=== PATIENT | male | born 1975 | race Caucasian/White ===

== ENCOUNTER → 2018-03-05 | Outpatient (CLI) | payer OTHER ==
[2018-03-05 16:55] LABS: CHOLESTEROL LEVEL 168 MG/DL (<200); CHOLESTEROL RISK RATIO 4.097 (<5); GLUCOSE,RANDOM 84 MG/DL (LESS THAN 200); HDL CHOLESTEROL 41 MG/DL (>40); LDL CHOLESTEROL 105.2 MG/DL (<100); NON-HDL-C 127 MG/DL; TRIGLYCERIDES LEVEL 109 MG/DL (<150)
[2018-03-05 16:58] LABS: ESTIMATED AVERAGE GLUCOSE 111 MG/DL (60-110); HEMOGLOBIN A1c 5.5 %
== END ==
LOC: M WUC 11:10
DX: Z51.81 Encounter for therapeutic drug level monitoring (principal); Z79.899 Other long term (current) drug therapy

== ENCOUNTER → 2018-06-29 | Outpatient (CLI) | payer OTHER ==
[2018-06-29 16:50] LABS: HEMATOCRIT 43.1 % (42.0-52.0); HEMOGLOBIN 14.2 g/dl (13.5-17.5); MEAN CORPUSCULAR HEMOGLOBIN 28.5 pg (27.0-33.0); MEAN CORPUSCULAR HGB CONC 32.9 g/dl (32.0-36.5); MEAN CORPUSCULAR VOLUME 86.4 fl (80.0-96.0); PLATELET COUNT, AUTOMATED 317 10^3/uL (150-450); RED BLOOD COUNT 4.99 10^6/uL (4.30-6.10); RED CELL DISTRIBUTION WIDTH 12.4 % (11.5-14.5); WHITE BLOOD COUNT 7.3 10^3/uL (4.0-10.0)
[2018-06-29 17:06] LABS: ALBUMIN 4.1 GM/DL (3.2-5.2); ALBUMIN/GLOBULIN RATIO 1.28 (1.00-1.93); ALKALINE PHOSPHATASE 64 U/L (45-117); ALT/SGPT 62 U/L (12-78); AST/SGOT 31 U/L (7-37); BILIRUBIN,DIRECT < 0.1 MG/DL (0.0-0.2); BILIRUBIN,TOTAL 0.2 MG/DL (0.2-1.0); TOTAL PROTEIN 7.3 GM/DL (6.4-8.2)
== END ==
LOC: M WUC 10:50
DX: Z79.899 Other long term (current) drug therapy (principal)
CPT/HCPCS: 80076

== ENCOUNTER → 2018-10-03 | Outpatient (REF) | payer OTHER ==
[2018-10-03 13:02] LABS: URIC ACID 6.4 MG/DL (3.5-7.2)
== END ==
LOC: M LAB REF 12:08
DX: M10.9 Gout, unspecified (principal)
CPT/HCPCS: 84550

== ENCOUNTER → 2018-11-26 | Outpatient (CLI) | payer OTHER ==
[2018-11-26 10:13] LABS: HEMATOCRIT 41.6 % (42.0-52.0); MEAN CORPUSCULAR HEMOGLOBIN 28.7 pg (27.0-33.0); MEAN CORPUSCULAR HGB CONC 33.7 g/dl (32.0-36.5); MEAN CORPUSCULAR VOLUME 85.4 fl (80.0-96.0); PLATELET COUNT, AUTOMATED 301 10^3/uL (150-450); RED BLOOD COUNT 4.87 10^6/uL (4.30-6.10); WHITE BLOOD COUNT 8.1 10^3/uL (4.0-10.0)
[2018-11-26 10:35] LABS: BILIRUBIN,DIRECT 0.1 MG/DL (0.0-0.2); BILIRUBIN,TOTAL 0.6 MG/DL (0.2-1.0); TOTAL PROTEIN 7.7 GM/DL (6.4-8.2); VALPROIC ACID (DEPAKOTE) 27.2 UG/ML (50.0-100.0)
== END ==
LOC: M WUC 08:18
PROVIDERS: ATTEND Psychiatry & Neurology Psychiatry
DX: Z51.81 Encounter for therapeutic drug level monitoring (principal); Z79.899 Other long term (current) drug therapy

== ENCOUNTER 2019-04-07 07:25 | Day surgery (SDC) | payer OTHER ==
[~2019-04-07] VITALS: Ht 185.4 cm; Wt 106.6 kg
[~2019-04-07 07:25] MED LIST: ALLO10TA PO; CLON0.5T8 PO; DEPA1TAB3 PO; MOME50SP; MULTCAP PO; OLAN15TA PO; PROAAER10 INH; ROSU10TA5 PO
[2019-04-07] MEDS ORDERED: MIDAZOLAM INJ 2 MG/2 ML VIAL (J2250) As Ordered ONE (08:52)
[2019-04-07] MEDS ORDERED: ROCURONIUM BROMIDE 50 MG/5 ML VIAL As Ordered ONE (08:52)
[2019-04-07] MEDS ORDERED: PROPOFOL 200 MG/20 ML VIAL As Ordered ONE (08:52)
[2019-04-07] MEDS ORDERED: fentaNYL 250 MCG/5 ML INJECTION (J3010) As Ordered ONE (08:52)
[2019-04-07] MEDS ORDERED: LIDOCAINE 2% INJ 100 MG/5 ML SDV (FOR ANES.) As Ordered ONE (08:52)
[2019-04-07] MEDS ORDERED: LR 1,000 ML IV ONE (09:15)
[2019-04-07] MEDS ORDERED: LIDOCAINE W/EPINEPHRINE 1% 20ML VIAL As Ordered ONE (09:38)
[2019-04-07] MEDS ORDERED: EPINEPHrine 1MG/ML INJ 30ML MD-VIAL As Ordered ONE (09:39)
[2019-04-07] MEDS ORDERED: SUGAMMADEX SODIUM 500 MG/5 ML VIAL (BRIDION) As Ordered ONE (10:33)
[2019-04-07] MEDS ORDERED: dexameTHASONE 4 MG/ML 1ML VIAL (J1100) As Ordered ONE (10:33)
[2019-04-07] MEDS ORDERED: ONDANSETRON 4MG/2ML VIAL (J2405) As Ordered ONE (10:33)
[2019-04-07] MEDS ORDERED: KETOROLAC 60 MG/2 ML VIAL (J1885) As Ordered ONE (10:33)
[2019-04-07] MEDS ORDERED: MORPHINE 10 MG/ML 1ML VIAL (J2270) IV ONE (11:15)
[2019-04-07] MEDS ORDERED: LR 1,000 ML IV SCH ×2 (11:15→12:00)
[2019-04-07] MEDS ORDERED: ACETAMINOPH W/CODEINE #3 TAB UD PO PRN (11:15)
--- NOTE | 2019-04-07 11:25 | RO ---
DATE OF PROCEDURE: 04/07/2019 PREOPERATIVE DIAGNOSES: Nasal septal deviation, chronic rhinitis. POSTOPERATIVE DIAGNOSES: Nasal septal deviation, chronic rhinitis. PROCEDURE: Septoplasty, bilateral turbinectomy. SURGEON: Dr. Anoop Ballard GEOPHYSICAL OPERATOR: ANESTHESIA: . DESCRIPTION OF PROCEDURE: Under general anesthesia with the patient intubated, the patient is prepped and draped in the usual manner. I made an incision anteriorly and elevated the subperichondrial plane on both sides. I removed a portion of the ethmoid plate and maxillary crest which were deviated. Once that was done, then I closed the incision with 4-0 Vicryl. I made an incision anterior to the inferior turbinate on both sides and removed a portion of the hosea anteriorly. I closed that incision with 4-0 Vicryl. The patient tolerated the procedure well. Approximately 100 mL estimated blood loss. There was more bleeding than usual, so I put a packing in the nose at the end of the procedure. This will be removed in postoperative holding.
[2019-04-07] MEDS ORDERED: fentaNYL 100 MCG/2 ML INJECTION (J3010) IV PRN (12:00)
[2019-04-07] MEDS ORDERED: oxyCODONE 5MG TAB PO PRN (12:00)
[2019-04-07] MEDS ORDERED: METOCLOPRAMIDE INJ 10MG/2ML VIAL (J2765) IV PRN (12:00)
[2019-04-07 12:40] VITALS: BP 120/79
== END 2019-04-07 13:00 | disposition home or self-care (01) ==
LOC: M SDC 07:25
PROVIDERS: ATTEND Otolaryngology
DX: J34.2 Deviated nasal septum (principal); J30.9 Allergic rhinitis, unspecified; E78.00 Pure hypercholesterolemia, unspecified; F31.9 Bipolar disorder, unspecified; J45.909 Unspecified asthma, uncomplicated; F12.90 Cannabis use, unspecified, uncomplicated; Z88.1 Allergy status to other antibiotic agents; Z79.51 Long term (current) use of inhaled steroids; Z79.899 Other long term (current) drug therapy
CPT/HCPCS: 30140; 30520; 88300; 88305; J1100; J1885; J2250; J2270; J2405; J3010

== ENCOUNTER 2019-04-07 19:36 | Emergency (ER) | payer OTHER ==
[~2019-04-07] VITALS: Ht 185.4 cm; Wt 106.8 kg
[2019-04-07 20:29] LABS: BASO % 0.2 % (0.0-1.0); HEMATOCRIT 41.2 % (42.0-52.0); HEMOGLOBIN 13.9 g/dl (13.5-17.5); LYMPH # 1.1 10^3/uL (1.5-4.5); LYMPH % 9.2 % (24.0-44.0); MEAN CORPUSCULAR HGB CONC 33.7 g/dl (32.0-36.5); MONO # 0.2 10^3/uL (0.0-0.8); MONO % 1.4 % (0.0-5.0); NEUTROPHILS # 10.5 10^3/uL (1.8-7.7); NEUTROPHILS % 88.9 % (36.0-66.0); PLATELET COUNT, AUTOMATED 296 10^3/uL (150-450); RED BLOOD COUNT 4.79 10^6/uL (4.30-6.10); WHITE BLOOD COUNT 11.8 10^3/uL (4.0-10.0)
[2019-04-07 20:40] LABS: INR 1.04; PROTHROMBIN TIME 13.7 SECONDS (12.1-14.4)
[2019-04-07 20:41] LABS: PARTIAL THROMBOPLASTIN TIME 28.5 SECONDS (25.4-37.6)
[2019-04-07] MEDS ORDERED: LORazepam 2 MG/ML VIAL (J2060) IV STA ×2 (20:41→21:15)
[2019-04-07 21:19] LABS: BLOOD UREA NITROGEN 20 MG/DL (7-18); CALCIUM LEVEL 9.3 MG/DL (8.5-10.1); CARBON DIOXIDE LEVEL 27 MEQ/L (21-32); CHLORIDE LEVEL 103 MEQ/L (98-107); CREATININE FOR GFR 0.98 MG/DL (0.70-1.30); GLOMERULAR FILTRATION RATE > 60.0 (>60); GLUCOSE, FASTING 126 MG/DL (70-100); SODIUM LEVEL 139 MEQ/L (136-145)
[2019-04-07] MEDS ORDERED: OXYMETAZOLINE NASAL SPRAY (AFRIN) ONE (22:15)
[2019-04-07 22:39] VITALS: BP 124/72
== END 2019-04-07 22:40 | disposition home or self-care (01) ==
LOC: M ED 19:36
DX: R04.0 Epistaxis (principal); J95.830 Postprocedural hemorrhage of a respiratory system organ or structure following a respiratory system procedure; Z79.899 Other long term (current) drug therapy; Z88.0 Allergy status to penicillin
CPT/HCPCS: 36415; 80048; 85025; 85610; 85730; 86850; 86900; 86901; 99284; J2060

== ENCOUNTER → 2023-08-27 | Outpatient (CLI) | payer OTHER ==
[~2023-08-27] MED LIST changes: +CLON0.5T2 PO; -CLON0.5T8 PO; -MOME50SP; +NASO50SP3; -OLAN15TA PO; +OLAN15TA13 PO; -ROSU10TA5 PO; +ROSU10TA6 PO
== END ==
LOC: M WUC 14:26
PROVIDERS: ATTEND Nurse Practitioner Adult Health
DX: M25.562 Pain in left knee (principal)

== ENCOUNTER → 2024-09-01 | Outpatient (REF) | payer OTHER ==
[~2024-09-01] MED LIST changes: -OLAN15TA13 PO; +OLAN15TA69 PO; -ROSU10TA6 PO; +ROSU10TA61 PO
== END ==
LOC: M LAB REF 12:59
PROVIDERS: ATTEND Nurse Practitioner Adult Health
DX: Z79.899 Other long term (current) drug therapy (principal)

== ENCOUNTER → 2025-03-12 | Outpatient (REF) | payer OTHER ==
[2025-03-13 13:32] LABS: HERPES ZOSTER, VARICELLA IgG < 1.00 S/CO (>=1.00)
== END ==
LOC: M LAB REF 12:06
PROVIDERS: ATTEND Nurse Practitioner Adult Health
DX: Z20.820 Contact with and (suspected) exposure to varicella (principal); Z79.899 Other long term (current) drug therapy

== ENCOUNTER → 2025-09-16 | Outpatient (REF) | payer OTHER ==
[~2025-09-16] MED LIST changes: -ROSU10TA61 PO; +ROSU10TA90 PO
== END ==
LOC: M LAB REF 12:40
PROVIDERS: ATTEND Nurse Practitioner Adult Health
DX: Z23 Encounter for immunization (principal)

== ENCOUNTER → 2025-10-08 | Outpatient (CLI) | payer OTHER | LOC: M WUC 15:41 | PROVIDERS: ATTEND Nurse Practitioner Adult Health | DX: M25.552 Pain in left hip (principal); M16.12 Unilateral primary osteoarthritis, left hip ==